=== PATIENT | female | born 1985 | race Caucasian/White ===

== ENCOUNTER 2023-02-25 14:35 | Emergency (ER) | payer OTHER ==
[~2023-02-25] VITALS: Ht 160 cm; Wt 63.6 kg
[2023-02-25 15:01] VITALS: TEMP 98.2
[2023-02-25] MEDS ORDERED: NS 1,000 ML IV ONE (15:45)
[2023-02-25] MEDS ORDERED: Ketorolac 15 MG/ML VIAL IV ONE (15:45)
[2023-02-25] MEDS ORDERED: Ondansetron 4 MG/2 ML VIAL IV PRN (15:45)
[2023-02-25 16:11] LABS: BASO % 0.4 % (0.0-2.0); EOS # 0.2 K/mm3 (0.0-0.7); EOS % 3.1 % (0.0-4.0); GRAN # 4.4 K/mm3 (1.4-6.5); GRAN % 66.1 % (42.2-75.2); HEMATOCRIT 41.2 % (37.0-47.0); HEMOGLOBIN 14.3 g/dl (12.5-16.0); LYMPH # 1.6 K/mm3 (1.2-3.4); LYMPH % 23.4 % (20.0-51.0); MEAN CELL VOLUME 88 fl (80.0-100.0); MEAN CORPUSCULAR HEMOGLOBIN 31 pg (27-31); MEAN CORPUSCULAR HGB CONC 35 g/dl (33.0-37.0); MONO # 0.5 K/mm3 (0.1-0.6); MONO % 6.7 % (1.7-9.3); PLATELET COUNT 339 K/mm3 (130-400); RED BLOOD COUNT 4.67 M/mm3 (4.10-5.30); REDCELL DISTRIBUTION WIDTH-CV 12.2 % (11.5-14.5)
[2023-02-25 16:39] LABS: ALBUMIN 3.9 gm/dL (3.5-5.0); BILIRUBIN,TOTAL 0.2 mg/dL (0.2-1.2); CALCIUM 9.2 mg/dL (8.4-10.2); CREATININE, serum 0.74 mg/dL (0.57-1.11); POTASSIUM 3.8 mmol/L (3.5-4.5)
[2023-02-25] MEDS ORDERED: Iohexol 300 - 100 ML VIAL IV ONE (17:21)
[2023-02-25] MEDS ORDERED: NS 100 ML IV SCH (17:25)
[2023-02-25 18:53] VITALS: BP 110/68; PULSE 66
== END 2023-02-25 18:53 | disposition home or self-care (01) ==
LOC: COL.ER 14:35
PROVIDERS: Personal Emergency Response Attendant
DX: R10.32 Left lower quadrant pain (principal); R11.0 Nausea
CPT/HCPCS: J1885; J2405; J7030; Q9967

== ENCOUNTER → 2023-12-09 | Outpatient (CLI) | payer OTHER | LOC: MC.RAD 08:07 | DX: Z12.31 Encounter for screening mammogram for malignant neoplasm of breast (principal) ==